=== PATIENT | male | born 1970 | race African-American/Black ===

== ENCOUNTER 2018-08-05 00:02 | Emergency (ER) | payer OTHER ==
[~2018-08-05] VITALS: Ht 185.4 cm; Wt 84.0 kg
[2018-08-05] MEDS ORDERED: SODIUM CHLORIDE 0.9% 1,000 ML IV ONE (00:38)
[2018-08-05] MEDS ORDERED: ONDANSETRON HCL 4MG/2ML INJ IV STA (00:38)
[2018-08-05] MEDS ORDERED: MORPHINE SULFATE 4 MG/ML CPJ (NOT FOR IM USE) IV STA (00:38)
[2018-08-05 01:15] LABS: BASOPHILS % 0.4 % (0.0-2.0); EOSINOPHILS % 0.2 % (0.0-5.0); HEMATOCRIT. 42.6 % (42.0-52.0); HEMOGLOBIN. 14.4 g/dL (14.0-18.0); LYMPHOCYTES % 22.7 % (20.0-50.0); MEAN CORPUSCULAR HEMOGLOBIN 29.5 pg (28.0-32.0); MEAN CORPUSCULAR VOLUME 87.2 fL (80.0-94.0); MEAN PLATELET VOLUME 7.2 fl (7.4-10.4); NEUTROPHILS % 72.7 % (40.0-76.0); PLATELET 265 x1000/uL (130-400); RED BLOOD CELL COUNT 4.88 mill/uL (4.7-6.1)
[2018-08-05 01:16] LABS: CHLORIDE 104 mEq/L (98-107)
[2018-08-05 01:18] LABS: CLARITY URINE CLEAR (CLEAR); COLOR URINE YELLOW (YELLOW); KETONES URINE NEGATIVE (NEGATIVE); LEUKOCYTE ESTERASE URINE NEGATIVE (NEGATIVE); NITRITE URINE NEGATIVE (NEGATIVE); OCCULT BLOOD URINE NEGATIVE (NEGATIVE); PH URINE 6.5 (4.5-8.0); PROTEIN URINE NEGATIVE (NEGATIVE); SPECIFIC GRAVITY URINE 1.026 (1.005-1.030); UROBILINOGEN URINE 0.2 E.U./dL (0.2-1.0)
[2018-08-05 01:41] LABS: *AMPHETAMINES SCREEN URINE NEGATIVE (NEGATIVE); *BARBITURATES SCREEN URINE NEGATIVE (NEGATIVE); *BENZODIAZEPINES SCREEN URINE NEGATIVE (NEGATIVE); *COCAINE SCREEN URINE PRESUMTIVE POSITIVE (NEGATIVE); CANNABINOID URINE SCREEN PRESUMTIVE POSITIVE (NEGATIVE); METHADONE URINE SCREEN NEGATIVE (NEGATIVE); PHENCYCLIDINE URINE SCREEN NEGATIVE (NEGATIVE)
[2018-08-05 01:42] LABS: OPIATES URINE SCREEN NEGATIVE (NEGATIVE)
[2018-08-05] MEDS ORDERED: KETOROLAC 15MG/ML VIAL IV ONE (04:00)
[2018-08-05] MEDS ORDERED: IOHEXOL-350 100 ML BOTTLE ONE (05:16)
[2018-08-05] MEDS ORDERED: CEFTRIAXONE 1 G PREMIX 50 ML IV ONE (06:30)
[2018-08-05] MEDS ORDERED: AZITHROMYCIN 500 MG in DEXT 5% WATER 250 ML IV ONE (06:30)
[2018-08-05 10:43] VITALS: BP 127/70
== END 2018-08-05 10:53 | disposition left against medical advice (07) ==
LOC: ER 00:24 → EDBEDREQTM 07:03 → EDBEDREQ 07:03 → ER 10:53 → CANBEDREQ 11:19
DX: J18.9 Pneumonia, unspecified organism (principal); F17.200 Nicotine dependence, unspecified, uncomplicated; Z85.038 Personal history of other malignant neoplasm of large intestine; Z98.890 Other specified postprocedural states
CPT/HCPCS: 36415; 71045; 71275; 74176; 80053; 80305; 81003; 83605; 83690; 83880; 84484; 85025; 87040; 93005; 96361; 96365; 96367; 96375; 99284; J0456; J0696; J1885; J2270; J2405; J7030; Q9967; J7060